=== PATIENT | female | born 1980 | race Caucasian/White ===

== ENCOUNTER 2017-12-14 18:25 | Emergency (ER) | payer BC ==
[~2017-12-14] VITALS: Ht 160 cm; Wt 86.3 kg
[2017-12-14 18:40] VITALS: Ht 160 cm; Wt 86.3 kg
[2017-12-14 19:45] VITALS: BP 123/73
== END 2017-12-14 19:45 | disposition home or self-care (01) ==
LOC: ED 18:25
DX: L25.9 Unspecified contact dermatitis, unspecified cause (principal); I10 Essential (primary) hypertension
CPT/HCPCS: J7512; Q0163

== ENCOUNTER 2018-07-23 05:28 | Emergency (ER) | payer BC ==
[~2018-07-23] VITALS: Ht 160 cm; Wt 84.4 kg
[2018-07-23 05:32] VITALS: Ht 160 cm; Wt 84.4 kg
[2018-07-23 07:14] LABS: BASOPHIL % 0.4 % (0-2); PLATELET COUNT 225 x10^3mcL (130-400); RED CELL DISTRIBUTION WIDTH 13.6 % (11.5-14.5)
[2018-07-23 07:21] LABS: CALCIUM 8.7 mg/dL (8.5-10.1); CARBON DIOXIDE 23.7 mmol/L (21-32); CHLORIDE SERUM 106 mmol/L (98-107); CREATININE SERUM 0.6 mg/dL (0.6-1.0); GFR1 > 60 mL/min; GLUCOSE SERUM 100 mg/dL (74-106); POTASSIUM SERUM 3.6 mmol/L (3.5-5.1); SODIUM SERUM 139 mmol/L (136-145)
[2018-07-23 07:25] LABS: ALBUMIN 3.4 g/dL (3.4-5.0); ALKALINE PHOSPHATASE 86 U/L (46-116); ALT/SGPT 42 U/L (14-59); AMYLASE 44 U/L (25-115); AST/SGOT 24 U/L (15-37); BILIRUBIN TOTAL 1.21 mg/dL (0.20-1.00); LIPASE 138 IU/L (73-393); TOTAL PROTEIN, SERUM 7.5 g/dL (6.4-8.2)
[2018-07-23 07:43] LABS: microscopic required? YES; urine erythrocyte 3+ (NEGATIVE)
[2018-07-23 09:02] VITALS: BP 145/74
[2018-07-24 05:47] LABS: RAPID PLASMA REAGIN Non Reactive (Non Reactive)
== END 2018-07-23 09:02 | disposition home or self-care (01) ==
LOC: ED 05:28
PROVIDERS: Emergency Medicine
DX: N73.9 Female pelvic inflammatory disease, unspecified (principal); N76.0 Acute vaginitis; N83.202 Unspecified ovarian cyst, left side; N83.201 Unspecified ovarian cyst, right side
CPT/HCPCS: 87491; 87591; J0696; J2405; J3010; J7030

== ENCOUNTER 2019-04-22 13:48 | Emergency (ER) | payer BC ==
[~2019-04-22] VITALS: Ht 160 cm; Wt 88.0 kg
[2019-04-22 14:09] VITALS: Ht 160 cm; Wt 88.0 kg
[2019-04-22 14:29] LABS: BASOPHIL % 0.2 % (0-2); PLATELET COUNT 227 x10^3mcL (130-400); RED CELL DISTRIBUTION WIDTH 13.3 % (11.5-14.5)
[2019-04-22 14:34] LABS: CALCIUM 8.5 mg/dL (8.5-10.1); CARBON DIOXIDE 26.6 mmol/L (21-32); CHLORIDE SERUM 102 mmol/L (98-107); CREATININE SERUM 0.7 mg/dL (0.6-1.0); GFR1 > 60 mL/min; GLUCOSE SERUM 102 mg/dL (74-106); POTASSIUM SERUM 3.6 mmol/L (3.5-5.1); SODIUM SERUM 137 mmol/L (136-145)
[2019-04-22 14:39] LABS: ALBUMIN 3.7 g/dL (3.4-5.0); ALKALINE PHOSPHATASE 80 U/L (46-116); ALT/SGPT 51 U/L (14-59); AST/SGOT 19 U/L (15-37); BILIRUBIN TOTAL 1.9 mg/dL (0.20-1.00); TOTAL PROTEIN, SERUM 7.7 g/dL (6.4-8.2)
[2019-04-22 17:51] LABS: microscopic required? YES; urine erythrocyte 2+ (NEGATIVE)
[2019-04-22 18:03] VITALS: BP 130/73
== END 2019-04-22 18:03 | disposition home or self-care (01) ==
LOC: ED 13:48
PROVIDERS: Emergency Medicine
DX: N39.0 Urinary tract infection, site not specified (principal); Z98.890 Other specified postprocedural states
CPT/HCPCS: 87491; 87591; J1885; J3010

== ENCOUNTER 2019-06-17 08:45 | Emergency (ER) | payer OTHER ==
[~2019-06-17] VITALS: Ht 160 cm; Wt 87.1 kg
[2019-06-17 08:51] VITALS: Ht 160 cm; Wt 87.1 kg
[2019-06-17 10:37] VITALS: BP 144/80
== END 2019-06-17 10:37 | disposition home or self-care (01) ==
LOC: ED 08:45
DX: B34.9 Viral infection, unspecified (principal); J98.01 Acute bronchospasm; Z98.890 Other specified postprocedural states
CPT/HCPCS: J7512; J7613; J7644